=== PATIENT | female | born 2000 | race Caucasian/White ===

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

== ENCOUNTER 2022-02-05 01:13 | Day surgery (SDC) | payer BC, SELFPAY ==
[2022-01-20 14:47] VITALS: BMI 23.3
--- NOTE | 2022-01-20 14:56 | PC.NURSE ---
Report to the Outpatient Waiting Room, entrance under the green pavilion located off [facility], at 0600 on 02/05/22. Planned Procedure Time: 0800. Time changes happen often and if your time is changed the preop area will call you the afternoon before. - You and your visitor will be asked to self-screen and do not enter if you have any COVID symptoms. - Only one visitor is requested with a max of two and NO children visitors are allowed at this time. - The patient visitor may be requested to leave or wait in car when not with patient due to distancing restrictions. - A mask is require within the hospital. Patients may have clear liquids (water, carbonated beverages, clear teas, apple juice) until 3 hours prior to surgery with a maximum of 20 ounces. - No food from midnight until time of surgery - Infants may have breast milk until 4 hours before surgery, formula 6 hours prior to surgery. Take the following medications with a SIP of water the morning of surgery: _n/a__ Medications to discontinue per physician _n/a__ Date to take last dose n/a Please no make-up, nail occitan, hairspray, perfume, deodorant, or body powder the day of surgery. No jewelry (including any body piercings) or valuables the day of surgery, leave them at home. Please take a shower or bath the night before, or the morning of, surgery with an antibacterial soap. Wear comfortable, loose fitting clothing. - Jewelry must be removed prior to entering the operating room. Rings and piercings that are not removed may be cut off. - The hospital will not accept responsibility for valuables. - Please leave all valuables, including medications, at home the day of surgery. If you are going home after surgery, a licensed tanker driver must drive you home. - NO public transportation without another adult if you receive anesthesia. - We recommend that an adult stay with you for 24 hours following discharge. - We also recommend that you do not drive, make important decision, drink alcoholic beverages, or take any drugs that were not prescribed by your health care provider for at least 24 hours after your discharge time. Follow any additional instructions given to you from your surgeon. If you or anyone in your household have experienced Covid symptoms in the past week, please notify your surgeon or the nurse liaison at the phone number below for possible testing. Telephone instructions given to patient and asked if any additional questions and then verbalized understanding. Patient advised to call surgeon office or pre surgery nurse liaison [phone] if any additional questions.
--- NOTE | 2022-02-04 17:25 | P.HP_ITS ---
H&P: HPI History of Present Illness Date/Time: 02/04/22 17:25 Chief Complaint: tonsillitis adenoiditis recurrent Narrative: planned surgery Review of Systems Review of Systems: All systems reviewed & are unremarkable except as noted in HPI and below [facility] Social History Social History (Updated 12/03/21 @ 10:42 by NICKO Beal) Smoking status: Never smoker Second hand tobacco smoke exposure: No Alcohol intake: never Substance use: never Living arrangements: with family Spiritual care concerns: No Meds Home Medications and Allergies Home Medications Medication Instructions Recorded Confirmed Type No Home Medications 12/03/21 01/20/22 History Allergies Allergy/AdvReac Type Severity Reaction Status Date / Time No Known Allergies Allergy Unverified 01/20/22 14:46 Exam Narrative: infected appearing tonsils chronic cryptic Assessment and Plan Assessment and plan (1) Adenoiditis: Code(s): J35.02 - Chronic adenoiditis Status: Acute (2) Recurrent tonsillitis: Code(s): J03.91 - Acute recurrent tonsillitis, unspecified Status: Acute Plan ?Plan operating room adenoidectomy tonsillectomy risks were discussed including bleeding infection damage to surrounding structures need for further procedures postoperative bleeding 5% velopharyngeal insufficiency.
[2022-02-05] VITALS (7 sets, daily range): BP systolic 101–126; BP diastolic 50–84; PULSE 65–83; RESP 10–20; TEMP 36.1–36.2; O2SAT 100
[2022-02-05] MEDS: LACTATED RINGERS 1,000 ML 30 ML IV CONT (06:37)
[2022-02-05] MEDS: ACETAMINOPHEN 500 MG TABLET 1000 MG PO (06:39)
--- NOTE | 2022-02-05 07:15 | WPDHPUPDATE1 ---
History and Physical Update Update Date/Time: 02/05/22 07:15 History and Physical has been reviewed, including an updated exam of the patient. There are NO changes in the patient's condition. Risks, benefits, and alternatives have been discussed and questions answered. Patient agrees to proceed with procedure.
--- NOTE | 2022-02-05 07:26 | WPDANESEPPF ---
Anes - Initial Pre Proc Eval Procedure: Operation Date: 02/05/22 08:00 Proposed Procedures p Tonsillectomy And Adenoidectomy - Jovani Floyd MD Date/Time: 02/05/22 07:26 Surgeon: Jovani Floyd MD Pre Op Diagnosis: chronic tonsillitis Patient Data Age: 21 Gender: F Height: 1.68 m Weight: 66.25 kg Allergies Allergy/AdvReac Type Severity Reaction Status Date / Time No Known Allergies Allergy Unverified 02/05/22 06:50 Home Medications Medication Instructions Recorded Confirmed Type No Home Medications 12/03/21 02/05/22 History Patient hx anesthesia problems: none Family hx anesthesia problems: none Results Review: All pre-operative results and documents have been reviewed as part of the pre-operative evaluation. [facility] Social History Social History Smoking status: Never smoker Second hand tobacco smoke exposure: No Alcohol intake: never Substance use: never Living arrangements: with family Spiritual care concerns: No Anes - Eval Final PreProcedure Day of Procedure 02/05/22 07:26 Patient weight: normal Heart: regular rate and rhythm Lungs: clear to auscultation Airway: Mallampati scale class II Neurological: alert and oriented Last oral intake: >/= 8 hours ASA classification: I Emergent: no Anesthetic plan: proceed Anesthesia type and monitoring: general ETT and standard monitoring Results Review: All pre-operative results and documents have been reviewed as part of the pre-operative evaluation. Informed Consent: The patient's anesthetic plan and its attendant risks and benefits were discussed with the patient/family/POA. Questions were solicited and answers provided to the satisfaction of the patient/family/POA.
--- NOTE | 2022-02-05 08:45 | P.OP_ITS ---
Procedure Note - Detailed Date of Procedure 02/05/22 Pre-op Diagnosis chronic tonsillitisChronic adenoiditis Post-op Diagnosis Same Procedure Performed tonsillectomy adenoidectomy Surgeon Jovani Floyd MD Anesthesia General Indications see above Findings purulent tonsils adenoid pad easily removed minimal if any bleeding Description of Procedure patient identified consent verified. Patient brought. General anesthesia induced endotracheal tube secured. Patient prepped draped positioned 2nd time- out performed. McIvor mouth gag inserted to reveal tonsils described. They were dissected bilaterally in extracapsular plane. In between the tonsils the McIvor mouth gag was lowered to allow blood returned to the tonsils. Any bleeding was controlled with Bovie suction electrocautery. Red rubber catheters were then inserted transnasally suspending the soft palate anteriorly. The adenoid pad was removed using Bovie suction electrocautery setting 30. Red rubber catheters removed. McIvor mouth gag was lowered and reopened 30 seconds later to reveal no further bleeding. Total blood loss less 3 cc. I performed all dictated portions of the procedure. Care the patient given Anesthesiology. Patient tolerated the procedure well no immediate complications patient taken to PACU. Estimated Blood Loss 3 Drains No Packing No Pathology Yes Complications No immediate complications Condition Stable Disposition PACU
[2022-02-05] MEDS: oxyCODONE (*CRX) 5 MG/5 ML ORAL SOLN IR PO (09:45)
== END 2022-02-05 09:56 | disposition home or self-care (01) ==
PROVIDERS: PCP Family Medicine; Visit Provider Otolaryngology
PROC: (CPT 42821; principal; 2022-02-05 08:00)
DX: J35.03 Chronic tonsillitis and adenoiditis (principal)
CPT/HCPCS: 42821; 88300; A9270; J1100; J2405; J2704; J3010; J7120

== ENCOUNTER 2022-06-29 16:03 | Outpatient (CLI) | payer BC, SELFPAY ==
[2022-06-29 20:50] LABS: Thyroid Stimulating Hormone 0.356 uIU/mL (0.465-4.680)
[2022-06-29 21:38] LABS: Vitamin D 25 Hydroxy 35.4 ng/mL
[2022-07-07 16:20] LABS: Hematocrit 39.3 % (35.0-45.0); Hemoglobin 12.8 g/dL (11.7-15.5); MCH 29.8 pg (27.0-33.0); MCV 91.6 fL (80.0-100.0); RDW 12.7 % (11.0-15.0); Red Blood Cell Count 4.29 Mill/uL (3.80-5.10)
[2022-07-13 16:31] LABS: CF Result NEGATIVE (NEGATIVE); Ethnicity NG
== END 2022-06-29 16:04 | disposition home or self-care (01) ==
LOC: ANHLAB 16:04
PROVIDERS: PCP Family Medicine; Visit Provider Registered Nurse
DX: Z34.91 Encounter for supervision of normal pregnancy, unspecified, first trimester (principal); Z3A.00 Weeks of gestation of pregnancy not specified
CPT/HCPCS: 36415; 81220; 82306; 83021; 84443; 86850

== ENCOUNTER 2022-07-07 14:50 | Outpatient (CLI) | payer BC, SELFPAY ==
--- NOTE | ~2022-07-07 | US_ITS ---
EXAMINATION: US OB <= 14 weeks fetus INDICATION: Dating and viability TECHNIQUE: Sonography of the pelvis was performed by transabdominal techniques. COMPARISON: None. RESULT: Uterus: Orientation: Anteverted. 9.8 x 4.2 x 9.7 cm. Myometrium: homogeneous echogenicity. Intrauter ine gestational sac: Single present. Embryo: Single present. [place] rump length: 4.2 cm, correspond ing gestational age 11 weeks, 1 days. Gestational heart rate: present 173 bpm. Subgestational hemato ma: Absent. Right ovary: Not well visualized. No adnexal mass. Left ovary: Left adnexa obscured by bowel gas. Pelvis free fluid: None. IMPRESSION: Single, live intrauterine gestation. Estimated Gestational Age: 11 weeks, 1 days by crown rump length. LING by ultrasound 01/25/2023. Reviewed, dictated and finalized at location K. IMPRESSION: Single, live intrauterine gestation. Estimated Gestational Age: 11 weeks, 1 days by crown rump length. LING by ultra sound 01/25/2023.
== END 2022-07-07 14:51 | disposition home or self-care (01) ==
PROVIDERS: PCP Family Medicine; Visit Provider Registered Nurse
DX: Z36.9 Encounter for antenatal screening, unspecified (principal); R79.89 Other specified abnormal findings of blood chemistry; Z3A.11 11 weeks gestation of pregnancy
CPT/HCPCS: 36415; 76801; 84439

== ENCOUNTER 2022-11-03 12:59 | Outpatient (CLI) | payer BC, SELFPAY ==
[2022-11-03 14:57] LABS: Basophils Percent Auto 0.2 % (0.2-1.2); Eosinophils Absolute Auto 0.1 K/mm3 (0-0.3); Eosinophils Percent Auto 0.7 % (0-4.4); Hematocrit 33.3 % (37.0-47.0); Hemoglobin 11.5 g/dL (12.0-15.0); Immature Granulocyte Absolute 0.07 K/mm3 (0.00-0.031); Immature Granulocyte Percent A 0.7 % (0-0.5); Lymphocytes Absolute Auto 1.69 K/mm3 (0.9-3.2); Lymphocytes Percent Auto 15.9 % (18.3-44.2); Mean Corpuscular HGB Conc 34.5 g/dl (32-36); Mean Corpuscular Hemoglobin 31.8 pg (26-34); Mean Platelet Volume 9.9 fl (7.4-10.4); Monocytes Absolute Auto 0.5 K/mm3 (0.1-0.6); Monocytes Percent Auto 4.7 % (2.6-8.5); Neutrophils Absolute Auto 8.3 K/mm3 (1.3-6.7); Neutrophils Percent Auto 77.8 % (45.5-73.1); Platelet Count Result 241 k/mm3 (150-375); Red Blood Count 3.62 M/mm3 (4.2-5.4); Red Cell Distribution Width 12.6 % (11.5-14.5); White Blood Count 10.6 K/mm3 (4.5-10.0)
[2022-11-03 15:10] LABS: Glucose 1 Hour PP 50gm Dose 109 mg/dL
== END 2022-11-03 13:00 | disposition home or self-care (01) ==
LOC: ANHLAB 13:00
PROVIDERS: Visit Provider Registered Nurse
DX: Z34.90 Encounter for supervision of normal pregnancy, unspecified, unspecified trimester (principal); Z3A.00 Weeks of gestation of pregnancy not specified
CPT/HCPCS: 36415; 82947; 85025

== ENCOUNTER 2022-11-03 15:41 | Outpatient (RCR) | payer BC, SELFPAY ==
[2022-11-03 16:27] VITALS: BP 110/55; PULSE 66
== END 2022-12-23 11:23 | disposition home or self-care (01) ==
LOC: ANHOBOP 15:41
PROVIDERS: Visit Provider Obstetrics & Gynecology
DX: O36.8130 Decreased fetal movements, third trimester, not applicable or unspecified (principal); Z3A.28 28 weeks gestation of pregnancy
CPT/HCPCS: 59025

== ENCOUNTER 2022-12-03 14:36 | Outpatient (CLI) | payer BC, SELFPAY ==
[2022-12-03 15:24] LABS: Hematocrit 32.9 % (37.0-47.0); Hemoglobin 11.2 g/dL (12.0-15.0); Mean Corpuscular Volume 91.1 fl (80-100); Mean Platelet Volume 9.9 fl (7.4-10.4); Platelet Count Result 218 k/mm3 (150-375); Red Blood Count 3.61 M/mm3 (4.2-5.4); White Blood Count 10.8 K/mm3 (4.5-10.0)
[2022-12-03 18:58] LABS: HIV 1/2 Ab P24 Ag Result Negative (Negative)
[2022-12-06 05:59] LABS: Rapid Plasma Reagin Non-Reactive (NonReactive)
== END 2022-12-03 14:37 | disposition home or self-care (01) ==
LOC: ANHLAB 14:37
PROVIDERS: Visit Provider Obstetrics & Gynecology
DX: Z34.93 Encounter for supervision of normal pregnancy, unspecified, third trimester (principal); Z3A.00 Weeks of gestation of pregnancy not specified
CPT/HCPCS: 36415; 85027; 86592; 86703; G0432

== ENCOUNTER 2023-01-05 15:16 | Outpatient (RCR) | payer BC, SELFPAY ==
--- NOTE | ~2023-01-05 | US_ITS ---
EXAMINATION: US OB limited DATE: 01/05/2023 16:49 INDICATION: Variable decelerations. Third trimester. TECHNIQUE: Real-time ultrasound of the pelvis was performed. COMPARISON: Ultrasound 07/07/2022 FINDINGS: There is a single fetus in vertex presentation. The placenta is anterior. heart rate is 142 be ats per minute (bpm). The amniotic fluid index is 7.6 cm, which is normal. IMPRESSION: 1. Single living fetus in vertex presentation. Reviewed, dictated and finalized at location A. TECH
[2023-01-05 17:11] VITALS: BP 106/65; PULSE 92
== END 2023-04-05 23:59 | disposition home or self-care (01) ==
LOC: ANHOBOP 15:16
PROVIDERS: Visit Provider Obstetrics & Gynecology
DX: O36.8330 Maternal care for abnormalities of the fetal heart rate or rhythm, third trimester, not applicable or unspecified (principal); Z3A.37 37 weeks gestation of pregnancy
CPT/HCPCS: 59025; 76815

== ENCOUNTER 2023-01-19 15:55 | Inpatient (IN) | payer BC, SELFPAY ==
[2023-01-19] VITALS (7 sets, daily range): BP systolic 105–126; BP diastolic 62–84; PULSE 72–104; BMI 26.3
--- NOTE | 2023-01-19 16:25 | P.PNAN_ITS ---
Anes - Eval Pre Procedure Procedure: labor epidural Date/Time: 01/19/23 16:25 Pre Op Diagnosis: IOL Patient Data Age: 22 Gender: F Height: Weight: Last Vital Signs Pulse 81 01/19/23 16:15 BP 117/69 01/19/23 16:15 Allergies Allergy/AdvReac Type Severity Reaction Status Date / Time No Known Allergies Allergy Verified 01/18/23 15:07 Home Medications Medication Instructions Recorded Confirmed Type docosahexaenoic acid 200 mg 200 mg PO DAILY 07/27/22 01/05/23 History capsule ( DHA) Patient hx anesthesia problems: none Family hx anesthesia problems: none Results Review: All pre-operative results and documents have been reviewed as part of the pre- operative evaluation. [facility] Past Medical History Medical History BMI 25.0-25.9,adult Surgical History Surgical History History of tonsillectomy and adenoidectomy 01/2002 Family History Family History Father No problems noted. Mother No problems noted. Sibling No problems noted. Other No pertinent family history Social History Social History Smoking status: Never smoker Second hand tobacco smoke exposure: No Alcohol intake: never Substance use: never Substance use type: does not use Lack of Transportation: No Lack of Food: Never True Current Housing: I Have Housing Concerned About Future Housing: No Difficulty Paying Gas/Electric Bills: No Difficulty Paying for Meds: No Currently Unemployed: No Education: High School Diploma/GED Difficulty w/ Childcare or Family Care: No Living arrangements: with family Occupation/Education: student Additional occupation/education comments: 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 Gender identity (if verbalized by the patient): Female Sexual Orientation (if Verbalized by the Patient): Straight or Heterosexual Spiritual care concerns: No Agree to blood products: Yes Exam Day of Procedure 01/19/23 16:25 Patient weight: obese Heart: regular rate and rhythm Lungs: clear to auscultation Airway: Mallampati scale Neurological: alert and oriented
[2023-01-19 16:56] LABS: Basophils Percent Auto 0.2 % (0.2-1.2); Eosinophils Absolute Auto 0.1 K/mm3 (0-0.3); Eosinophils Percent Auto 0.5 % (0-4.4); Hematocrit 34.3 % (37.0-47.0); Hemoglobin 11.8 g/dL (12.0-15.0); Immature Granulocyte Absolute 0.06 K/mm3 (0.00-0.031); Immature Granulocyte Percent A 0.5 % (0-0.5); Lymphocytes Percent Auto 16.9 % (18.3-44.2); Mean Corpuscular HGB Conc 34.4 g/dl (32-36); Mean Corpuscular Hemoglobin 31.1 pg (26-34); Mean Corpuscular Volume 90.3 fl (80-100); Monocytes Absolute Auto 0.9 K/mm3 (0.1-0.6); Monocytes Percent Auto 6.8 % (2.6-8.5); Neutrophils Absolute Auto 9.8 K/mm3 (1.3-6.7); Neutrophils Percent Auto 75.1 % (45.5-73.1); Platelet Count Result 236 k/mm3 (150-375); Red Cell Distribution Width 13.3 % (11.5-14.5)
--- NOTE | 2023-01-19 17:22 | LDADM ---
This patient, Theresa Elizabeth, was admitted to Labor/Delivery/Recovery 103 on 01/19/23 at 15:55. Plans for labor, pain management and were discussed with patient. Patient/family oriented to hospital policies and general routines including ID bracelet, bed and alarms, visiting hours, pain management, procedures, bathroom and other care routines, personal items, smoking policy, room service/diet and guest tray routines, infant security routines, and visiting hours. Patient/Family are encouraged to report perceived risks to care and to ask questions if they do not understand what they are told or what they should do. See OBIX for further documentation.
[2023-01-19 17:46] LABS: Hepatitis B Surface Antigen Negative (Negative)
[2023-01-19] MEDS: LACTATED RINGERS 1,000 ML 125 ML IV CONT (18:28)
[2023-01-19] MEDS: OXYTOCIN 30 UNITS/NS 500 ML 30 UNITS/500 ML BAG IV CONT (18:30)
[2023-01-20] VITALS (147 sets, daily range): BP systolic 79–127; BP diastolic 50–79; PULSE 54–239; RESP 18; TEMP 36.2–36.7; O2SAT 96–100
[2023-01-20] MEDS: LACTATED RINGERS 1,000 ML 125 ML IV CONT ×3 (02:37→16:42)
[2023-01-20] MEDS: fentaNYL CITRATE INJ (*CRX) 100 MCG/2 ML VIAL 50 MCG IV PUSH (11:29)
[2023-01-20 15:10] LABS: Rapid Plasma Reagin Non-Reactive (NonReactive)
[2023-01-20] MEDS: OXYTOCIN 30 UNITS/NS 500 ML 30 UNITS/500 ML BAG 125 UNITS IV CONT (18:30)
[2023-01-21 04:36] LABS: Hematocrit 33.5 % (37.0-47.0); Hemoglobin 11.3 g/dL (12.0-15.0)
[2023-01-21 07:20] VITALS: BP 110/64; PULSE 87; RESP 16; TEMP 36.8; O2SAT 99
[2023-01-21 08:00] VITALS: PULSE 87; RESP 16; O2SAT 99
--- NOTE | 2023-01-21 08:33 | WPDANLDPN2 ---
Anes-Prog Note L&D Date/Time: 01/21/23 08:33 Comfortable throughout: labor and delivery Neuraxial method: epidural Epidural/Spinal procedure site: clean & non-tender Neuro status: Neuro function grossly intact. Cardiovascular status: normal Respiratory status: normal Airway patency: baseline Mental status: baseline Post-Op hydration status: normal Vital Signs: Last Vital Signs Temp 97.9 F 01/20/23 20:50 Pulse 66 01/20/23 20:50 Resp 18 01/20/23 20:50 BP 118/71 01/20/23 20:50 Pulse Ox 100 01/20/23 20:50 O2 Del Method Room Air 01/19/23 17:18 Pain score (VAS): 0/10 I/O: Intake & Output 01/20/23 01/21/23 01/21/23 23:59 07:59 15:59 Intake Total 1500 Output Total 200 Balance 1300 Post-procedural complaints: none Patient feedback: Patient satisfied with anesthetic care.
--- NOTE | 2023-01-21 08:42 | P.PCNOB_ITS ---
OB - Vaginal Delivery Note Procedure Delivery date: 01/21/23 Induction method: Per Pitocin Protocol Delivery augmentation: Rupture of Membranes Delivery monitor: External FHT Route of delivery: Episiotomy description: None Laceration Description: Labial (superior right labial hemostasis obtained with 3.0 vicyl simple stitich x 2) Delivery repair: vicryl Specimen: No Quantitative Blood Loss (ml): 200 Anesthesia type: Epidural Disposition: Floor Complications: No immediate complications Narrative: She was admitted for [facility] on the evening of 01/19. Her cervix had changed from prior office visit to favorable for induction. Low dose pitocin was started. She was 3 cm the morning of 01/20. She had assisted rupture of membranes the morning of 01/20. Clear fluid. She continued to progress in labor. She had epidural placed on request. She dilated to complete. She delivered a female over intact perineum. There was a nuchal cord x 2, surgically reduced. The nose and mouth suctioned at perineum with bulb the rest of baby was delivered with gentle downward traction. She was crying and placed on maternal abdomen and then taken to warmer. Pitocin started. Placenta delivered spontaneously and intact. The small laceration at labial had small ooze after pressure applied and 2 simple sutures of 3.0 vicryl used. Hemostasis noted. Patient tolerated procedure well. Baby Date of : 01/20/23 Time of : 18:09 Weeks of gestation at delivery: 39 Infant gender: Female Weight (pounds): 6 Weight (ounces): 9 presentation: vertex position: Right Occiput Anterior Placenta delivery description: Spontaneous Cord Vessel Description: 3 Vessels, Nuchal Cord (x2), Tight and Reduced (surgically) score one minute: 8 score five minutes: 8 AMG Delivery Billing Delivery Delivery: Delivery Charge
[2023-01-21] MEDS: POLYSACCHARIDE IRON COMPLEX 150 MG CAPSULE PO (09:15)
[2023-01-21] MEDS: MULTIVIT/MIN/PREN/FOL AC/IRON TABLET 1 TAB PO (09:15)
[2023-01-21 12:35] VITALS: BP 109/69; PULSE 84; RESP 16; TEMP 37.1; O2SAT 99
--- NOTE | 2023-01-21 16:19 | PC.NURSE ---
[id number] Introductions were made, then consulted with patient to assess needs related to . Mother led the conversation with her?plans to feed?her infant, the?experience so far and states it has been 3 hours since the infant breastfed but they are unable to keep infant . Encouraged understanding of the benefits of skin to skin (demonstrating unwrapping and placing upright on her chest), stimulating with massage touch, changing positions to encourage wakefulness, how to watch for early feeding cues, responsive feeding, feeding on demand (aiming for 8-12 times in 24 hours, about every 2-3 hours), milk production, building/maintaining a milk supply, duration of feeding, signs of adequate intake/output and how to record on the feeding sheet. Mother works well with her with encouragement and education. Reviewed positioning and ear, shoulder, hip alignment, supporting the breast to facilitate a deep latch, asymmetrical latch (off-center), leading with the chin with a big, open, wide gape and body close to mother. Infant latched optimally to the right breast in cross cradle position. Education given to the mother of how to visualize the suckling (with good rocking jaw motion), swallows (dropping of the lower jaw) and how to listen for drinking at the breast (the ka sound). Infant was able to maintain latch without pain to mother protecting the nipple with optimal positioning and latching. demonstrates swallowing with deep jaw motions. Mother voiced understanding of skin to skin, stimulating with massage touch, responsive feedings, hand expressed colostrum, talking to infant to encourage if it has been 2 -2.5 hours since the start of the last , to call if does not latch, or if there is discomfort with . Inpatient/outpatient resources provided with name written on the communication board, and the mom/baby guide. Parents voiced understanding of information, demonstrated learning and will call if there is a request for assistance. Reported to the Primary RN.
[2023-01-21 17:00] VITALS: BP 114/74; PULSE 85; RESP 16; O2SAT 100; O2SAT 99
[2023-01-21 19:44] VITALS: BP 108/62; PULSE 85; RESP 16; TEMP 36.8; O2SAT 97
[2023-01-22 08:05] VITALS: BP 104/61; PULSE 68; RESP 16; TEMP 36.8; O2SAT 98
[2023-01-22] MEDS: MULTIVIT/MIN/PREN/FOL AC/IRON TABLET 1 TAB PO (08:33)
--- NOTE | 2023-01-22 08:55 | P.PNOB_ITS ---
OB - PN: Subj Subjective Date/time seen: 01/21/23 08:15 Patient comments: pain well controlled, tolerating diet and other (Decreasing lochia.) baby status: doing well and nursing well [place] feeding status: exclusively breast feeding OB - PN: Obj Data Labs 01/21/23 03:34 OB - PN A/P Plan day: 1 Plan: routine care Comments: Patient doing well. Time Spent With Patient Time: Total time spent is greater than 50% in coordination of care (as documented) at patient's floor/unit and/or counseling patient: Exam Psych: Affect: normal affect Other: Abd: fundus firm below umbilicus, nontender Perineum: healing Ext: nontender
--- NOTE | 2023-01-22 08:55 | PM.OBPNVD ---
OB - PN: Subj Subjective Date/time seen: 01/22/23 08:55 Patient comments: pain well controlled, tolerating diet and other (Decreasing lochia.) baby status: doing well and nursing well [place] feeding status: exclusively breast feeding OB - PN: Obj Data Labs 01/21/23 03:34 OB - PN A/P Plan day: 2 Plan: discharge home and other Comments: Patient doing well. Follow up 4-6 weeks. Discharge instructions provided. Time Spent With Patient Time: Total time spent is greater than 50% in coordination of care (as documented) at patient's floor/unit and/or counseling patient: Time with patient: less than 15 minutes Exam Psych: Affect: normal affect Other: Abd: fundus firm below umbilicus, nontender Ext: nontender
--- NOTE | 2023-01-22 08:56 | P.DS_ITS ---
DS: Admitting Diagnosis Discharge Date 01/22/23 Admitting Diagnosis Induction of labor DS: Discharge Diagnosis Discharge Diagnosis (1) Delivery normal: Code(s): O80 - Encounter for full-term uncomplicated delivery Status: Acute OB - DS: Summary Hospital Course Hospital Course: She was admitted for medical induction of labor. She had an uncomplicated vaginal delivery. She did well . She had adequate pain control. She was tolerating regular diet and ambulating well. Baby did well. She was discharged to home on day 2. Discharge precautions discussed. OB Procedures : Ultrasound OB Procedures Intrapartum: Spontaneous Vag Delivery OB Procedures: : None Peripartum Data Delivery Method: Natural Vaginal Laceration Description: Labial (superior right labial hemostasis obtained with 3.0 vicyl simple stitich x 2) Episiotomy description: None Procedures: Spontaneous vaginal delivery complications: none Status at Discharge Functional status at discharge: independent ambulation Time Spent with Patient Time attestation: Total time spent providing and/or coordinating discharge services: Exam Const: General: cooperative Orientation/consciousness: oriented to person, oriented to place and oriented to time HENMT: Face/Nose/Sinus: Normal external nose present Eyes: General: appearance normal, both eyes and all related structures Resp: Effort & Inspection: normal respiratory effort GI: Inspection: normal to inspection Skin: General skin exam: normal color Neuro: General: oriented to person, oriented to place and oriented to time Extrem: General: normal to inspection and no calf tenderness Psych: Appearance: grossly normal Mental Status: mental status grossly normal Discharge Plan Discharge Attending physician on discharge: Oscar Vila Consulting providers: Cong Barrera Discharging Clinician: Oscar Vila Anticipated Discharge Date/Time: 01/22/23 08:59 Patient Disposition: Home, Self-Care Activity: may shower and pelvic rest Diet: regular Patient Instructions: Antibiotic Form, Vaginal Delivery (DC) Stand Alone Forms: General Discharge Information Follow-up/Referrals: Oscar Vila MD [Physician] - Call for Appointment (Call for appointment for 4 weeks .) Discharge Medications: No Action DHA 200 mg capsule 200 mg PO DAILY Date of admission: 01/19/23 15:55 Primary Care Provider: PHYSICIAN,LOMBARDI DEVELOPER Admitting Provider: Oscar Vila Attending physician on admission: Oscar Vila Condition: Stable
--- NOTE | 2023-01-22 09:55 | PC.NURSE ---
Patient viewed the discharge video Mother & Baby Care, The First Two Weeks . Patient was given the opportunity and encouraged to ask questions. Patient verbalized understanding of information shared and has been given the mother/baby guide for home reference.
[2023-01-24 09:18] VITALS: BP 117/78; PULSE 100; RESP 18; TEMP 36.6; O2SAT 100
== END 2023-01-22 14:25 | disposition home or self-care (01) | DRG 807 ==
LOC: ANHLDR 01-20 08:49 → ANHOB2 01-20 20:40
PROVIDERS: Admitting Provider Obstetrics & Gynecology; Visit Provider Obstetrics & Gynecology
DX: O69.1XX0 Labor and delivery complicated by cord around neck, with compression, not applicable or unspecified (principal); Z37.0 Single live birth; O70.0 First degree perineal laceration during delivery; Z3A.39 39 weeks gestation of pregnancy
CPT/HCPCS: 36415; 85014; 85018; 85025; 86592; 86762; 86850; 86900; 86901; 87340; A9270; J2590; J2795; J3010; J7120